=== PATIENT | male | born 1980 | race Caucasian/White ===

== ENCOUNTER 2016-09-29 12:56 | Emergency (ER) | payer OTHER ==
[2016-09-29 12:57] VITALS: BMI 26.6
--- NOTE | 2016-09-29 13:14 | C.PDOC ---
History Of Present Illness 36 male presents to the ER with persistent left sided chest pain for the past 2 weeks, with worsening dyspnea on exertion and SOB. Patient reports history of anxiety, states " I feel anxious when it begins", is not on any anxiety medications. Patient reports occasionally smokes. Denies fever, cough, nausea or vomiting. PERSIST L CP X 2 WEEKS. +WORSENING JACOBSEN, SOB. PLEURITIC. NO FEVER, COUGH. OCC SMOKER. DENIES HO ASTHMA. DENIES OTHER ASSOC SX. HO ANXIETY, "I FEEL ANXIOUS WHEN IT BEGINS' NOT ON ANXIETY MEDS EXAM MILD DIST NONTOXIC LUNGS CTA B/L NO W/R/R +PLEURITIC PAIN L SIDE AND BACK SPEAKING FULL SENTENCES WO DIFF PSYCH MILD ANXIETY CALM COOPERATIVE NO ACUTE PSYCHOSIS SKIN WARM DRY CV RRR REMAINDER NEG Time Seen by Provider: 09/29/16 13:10 Chief Complaint (Nursing): Chest Pain History Per: Patient History/Exam Limitations: no limitations Onset/Duration Of Symptoms: Persistent (2 weeks) Past Medical History Reviewed: Historical Data, Nursing Documentation, Vital Signs Vital Signs: Last Vital Signs Temp 98.2 F 09/29/16 13:05 Pulse 83 09/29/16 13:05 Resp 18 09/29/16 13:05 BP 125/86 09/29/16 13:05 Pulse Ox 98 09/29/16 13:48 Family History: States: No Known Family Hx - Social History Hx Alcohol Use: Yes Hx Substance Use: No - Immunization History Hx Tetanus Toxoid Vaccination: No Hx Influenza Vaccination: No Hx Pneumococcal Vaccination: No Review Of Systems Except As Marked, All Systems Reviewed And Found Negative. Constitutional: Negative for: Fever Cardiovascular: Positive for: Chest Pain (Left sided ) Respiratory: Positive for: Shortness of Breath, Other ((+) Dyspnea on exertion. ). Negative for: Cough Gastrointestinal: Negative for: Nausea, Vomiting Physical Exam - Physical Exam Appears: Non-toxic, In Acute Distress (Mild), Other ((+) Anxious. Speaking in full sentences. Calm. Cooperative. ) Skin: Warm, Dry, No Rash Head: Atraumatic, Normacephalic Oral Mucosa: Moist Chest: Symmetrical, Other ((+) Pleurtic pain left side. ) Cardiovascular: Rhythm Regular, No Murmur Respiratory: Normal Breath Sounds, No Rales, No Wheezing Back: Other ((+) Pleuritic pain left side back. ) Extremity: Normal ROM, No Swelling Neurological/Psych: Oriented x3, Normal Speech, Normal Motor ED Course And Treatment - Laboratory Results Result Diagrams: 09/29/16 14:07 09/29/16 14:07 ECG: Interpreted By Me ECG Rhythm: Sinus Rhythm ECG Interpretation: Normal Rate From EC (BPM) O2 Sat by Pulse Oximetry: 98 (RA ) Pulse Ox Interpretation: Normal - Radiology CXR: Interpreted by Me, Viewed By Me CXR Interpretation: Yes: No Acute Disease Reevaluation Time: 14:54 Reassessment Condition: Improved Medical Decision Making Medical Decision Making: PLAN: * CXR * EKG * Troponin * D-Dimer * CBC * BMP * Xanax PO * Toradol IVP Disposition Counseled Patient/Family Regarding: Studies Performed, Diagnosis, Need For Followup - Disposition Referrals: On License Of [facility] [Outside] [facility] [Outside] Disposition: HOME/ ROUTINE Disposition Time: 14:54 Condition: IMPROVED Instructions: Noncardiac Chest Pain (ED), Anxiety (ED) Forms: [employer] (Syriac) - Clinical Impression Clinical Impression: Chest pain, Anxiety - Scribe Statement The provider has reviewed the documentation as recorded by the Scribe Dulce Felipe Provider Attestation: All medical record entries made by the Scribe were at my direction and personally dictated by me. I have reviewed the chart and agree that the record accurately reflects my personal performance of the history, physical exam, medical decision making, and the department course for this patient. I have also personally directed, reviewed, and agree with the discharge instructions and disposition.
[2016-09-29 14:22] LABS: BASO # 0.1 K/uL (0.0-0.2); BASO % 0.9 % (0.0-2.0); EOS # 0.1 K/uL (0.0-0.7); EOS % 2.1 % (0.0-4.0); HEMOGLOBIN 14.9 g/dL (12.0-18.0); LYMPH # 1.8 K/uL (1.0-4.3); LYMPH % 27.5 % (20.0-40.0); MEAN CELL VOLUME 87.2 fL (80.0-94.0); MEAN CORPUSCULAR HEMOGLOBIN 29.4 pg (27.0-31.0); MEAN CORPUSCULAR HGB CONC 33.7 g/dL (33.0-37.0); MEAN PLATELET VOLUME 8.6 fL (7.2-11.7); MONO # 0.6 K/uL (0.0-0.8); MONO % 9.8 % (0.0-10.0); NEUT # 3.8 K/uL (1.8-7.0); NEUT % 59.7 % (50.0-75.0); NRBC % 0.1 % (0.0-2.0); RBC 5.07 Mil/uL (4.40-5.90); RED CELL DISTRIBUTION WIDTH 13.5 % (11.5-14.5); WHITE BLOOD COUNT 6.4 K/uL (4.8-10.8)
[2016-09-29 14:26] LABS: GFR AFRICAN-AMERICAN > 60; GFR NON-AFRICAN AMERICAN > 60
[2016-09-29 14:27] LABS: BLOOD UREA NITROGEN 20 mg/dL (9-20); CALCIUM 9.5 mg/dl (8.6-10.4)
[2016-09-29 15:38] VITALS: BP 105/61; PULSE 72; RESP 16; TEMP 98; O2SAT 99
--- NOTE | 2016-09-29 15:58 | RAD ---
HISTORY: chest pain COMPARISON: No prior. TECHNIQUE: Chest PA and lateral FINDINGS: LUNGS: No active pulmonary disease. PLEURA: No significant pleural effusion identified. No pneumothorax apparent. CARDIOVASCULAR: Normal. OSSEOUS STRUCTURES: No significant abnormalities. VISUALIZED UPPER ABDOMEN: Normal. OTHER FINDINGS: None. IMPRESSION: No active disease.
--- NOTE | 2016-09-30 14:14 | CARD ---
APPROVED REPORT EKG Measurement Heart [id number] <Conclusion> Normal sinus rhythm with sinus arrhythmia Normal ECG
== END 2016-09-29 15:38 | disposition home or self-care (01) ==
LOC: C.ER 12:56
DX: F41.9 Anxiety disorder, unspecified (principal); R07.89 Other chest pain
CPT/HCPCS: 71020; 80048; 84484; 85025; 85378; 93005; 96374; 99284; J1885

== ENCOUNTER 2017-04-11 19:27 | Emergency (ER) | payer BC ==
[2017-04-11 19:28] VITALS: BMI 26.6
[2017-04-11 19:46] VITALS: RESP 20; O2SAT 98
--- NOTE | 2017-04-11 20:09 | C.PDOC ---
History Of Present Illness 36 year old male presents to the ED for evaluation of SOB, chest tightness that started earlier today. Patient states his symptoms started today while he was going to work, stayed at work but felt his SOB was getting worse. Patient reports his SOB and chest tightness are on and off. Patient had a history of panick attacks, he reports currently not being in any out of the ordinary stress. Patient denies fever, chills, body aches, weakness, numbness. Chief Complaint (Nursing): Shortness Of Breath History Per: Patient History/Exam Limitations: no limitations Onset/Duration Of Symptoms: Days Current Symptoms Are (Timing): Still Present Quality: Tightness Exacerbating Factor(s): Exertion Associated Symptoms: Dizziness Recent travel outside of the [place]: No Additional History Per: Patient Past Medical History Reviewed: Historical Data, Nursing Documentation, Vital Signs Vital Signs: Last Vital Signs Temp 97.3 F L 04/11/17 20:45 Pulse 74 04/11/17 20:45 Resp 20 04/11/17 20:45 BP 109/72 04/11/17 20:45 Pulse Ox 98 04/11/17 20:57 - Medical History PMH: No Chronic Diseases Surgical History: No Surg Hx Family History: States: Unknown Family Hx - Social History Hx Alcohol Use: Yes Hx Substance Use: No - Immunization History Hx Tetanus Toxoid Vaccination: No Hx Influenza Vaccination: No Hx Pneumococcal Vaccination: No Review Of Systems Constitutional: Negative for: Fever, Chills Cardiovascular: Positive for: Chest Pain. Negative for: Palpitations Respiratory: Positive for: Shortness of Breath. Negative for: Cough Gastrointestinal: Negative for: Nausea, Vomiting, Abdominal Pain, Diarrhea Musculoskeletal: Negative for: Back Pain Skin: Negative for: Rash Neurological: Positive for: Dizziness. Negative for: Weakness, Numbness, Headache Physical Exam - Physical Exam Appears: Non-toxic, No Acute Distress Skin: Normal Color, Warm, Dry Head: Atraumatic, Normacephalic Eye(s): bilateral: Normal Inspection Nose: No Discharge, No Deformity Oral Mucosa: Moist Neck: Normal ROM, Supple Chest: Symmetrical Cardiovascular: Rhythm Regular, No Murmur Respiratory: Normal Breath Sounds, No Rales, No Rhonchi, No Wheezing Gastrointestinal/Abdominal: Soft, No Tenderness, No Guarding, No Rebound Extremity: Normal ROM, No Tenderness, No Deformity, No Swelling Neurological/Psych: Oriented x3, Normal Speech, Normal Cognition Gait: Steady ED Course And Treatment - Laboratory Results Result Diagrams: 04/11/17 20:31 04/11/17 20:31 ECG: Interpreted By Me, Viewed By Me ECG Rhythm: Sinus Rhythm ECG Interpretation: Normal Interpretation Of ECG: No ectopy, normal axis, normal intervals Rate From EC O2 Sat by Pulse Oximetry: 98 (On RA) Pulse Ox Interpretation: Normal - Radiology CXR: Interpreted by Me, Viewed By Me CXR Interpretation: Yes: Other (No active pulmoary disease ). No: No Acute Disease, Infiltrates Medical Decision Making Medical Decision Making: Impression: SOB Plan: * EKG * CXR * Labs * Normal * Xanax 0.25 mg PO Disposition - Disposition Referrals: [facility] [Outside] Disposition: HOME/ ROUTINE Disposition Time: 03:43 Condition: FAIR Prescriptions: ALPRAZolam [Xanax] 0.25 mg PO TID PRN #15 tab PRN Reason: Anxiety Instructions: Panic Disorder, Shortness of Breath (Dyspnea) Forms: [employer] (Pashto) Print Language: RUSSIAN - Clinical Impression Clinical Impression: Anxiety - Scribe Statement The provider has reviewed the documentation as recorded by the Scribe Provider Attestation: Marshall Delgado All medical record entries made by the Scribe were at my direction and personally dictated by me. I have reviewed the chart and agree that the record accurately reflects my personal performance of the history, physical exam, medical decision making, and the department course for this patient. I have also personally directed, reviewed, and agree with the discharge instructions and disposition.
[2017-04-11 20:39] LABS: BASO # 0.1 K/uL (0.0-0.2); EOS # 0.2 K/uL (0.0-0.7); EOS % 2.7 % (0.0-4.0); HEMOGLOBIN 14.4 g/dL (12.0-18.0); LYMPH # 2.4 K/uL (1.0-4.3); LYMPH % 33.8 % (20.0-40.0); MEAN CELL VOLUME 85.9 fL (80.0-94.0); MEAN CORPUSCULAR HEMOGLOBIN 29.6 pg (27.0-31.0); MEAN CORPUSCULAR HGB CONC 34.4 g/dL (33.0-37.0); MEAN PLATELET VOLUME 8.6 fL (7.2-11.7); MONO # 0.8 K/uL (0.0-0.8); MONO % 10.7 % (0.0-10.0); NEUT # 3.7 K/uL (1.8-7.0); NEUT % 51.8 % (50.0-75.0); RBC 4.87 Mil/uL (4.40-5.90); RED CELL DISTRIBUTION WIDTH 13.5 % (11.5-14.5); WHITE BLOOD COUNT 7.1 K/uL (4.8-10.8)
[2017-04-11 20:52] LABS: ALB/GLOB RATIO 1.3 (1.0-2.1); ALBUMIN 4.2 g/dL (3.5-5.0); ALT/SGPT 54 U/L (21-72); AST/SGOT 33 U/L (17-59); BLOOD UREA NITROGEN 17 mg/dL (9-20); CALCIUM 9.3 mg/dl (8.6-10.4); GFR AFRICAN-AMERICAN > 60; GFR NON-AFRICAN AMERICAN > 60
[2017-04-11 22:14] VITALS: BP 109/72; PULSE 74; TEMP 97.3
--- NOTE | 2017-04-12 09:07 | RAD ---
HISTORY: SOB COMPARISON: Comparison is made with 09/29/2026 TECHNIQUE: Chest PA and lateral FINDINGS: LUNGS: No active pulmonary disease. PLEURA: No significant pleural effusion identified. No pneumothorax apparent. CARDIOVASCULAR: Normal. OSSEOUS STRUCTURES: No significant abnormalities. VISUALIZED UPPER ABDOMEN: Normal. OTHER FINDINGS: None. IMPRESSION: No active disease.
--- NOTE | 2017-04-14 12:33 | CARD ---
APPROVED REPORT EKG Measurement Heart [id number] <Conclusion> Normal sinus rhythm Normal ECG
== END 2017-04-11 20:45 | disposition home or self-care (01) ==
LOC: C.ER 19:27
DX: F41.9 Anxiety disorder, unspecified (principal)

== ENCOUNTER 2018-03-05 17:11 | Emergency (ER) | payer BC ==
[2018-03-05 17:18] VITALS: BMI 26.1
[2018-03-05 17:20] VITALS: BP 130/85; PULSE 70; RESP 18; TEMP 98; O2SAT 100
[2018-03-05] MEDS ORDERED: Amoxicillin-Clav 875-125 mg Tab PO STA (17:59)
--- NOTE | 2018-03-05 18:13 | C.PDOC ---
History Of Present Illness 37 y/o male with a PMHx of anxiety presents to the ED complaining of left-sided ear pain and lymph node swelling x 1 day. Patient states that throughout the day, he developed intermittent left facial swelling associated with intermittent left ear throbbing. No prior history of similar symptoms in the past. 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 Denies any fevers, chills, headache, dizziness, sore throat, sinus congestion, neck pain, chest pain, or SOB. Time Seen by Provider: 03/05/18 17:51 Chief Complaint (Nursing): ENT Problem History Per: Patient History/Exam Limitations: None Onset/Duration Of Symptoms: Intermittent Episodes Current Symptoms Are (Timing): Still Present Past Medical History Reviewed: Historical Data, Nursing Documentation, Vital Signs Vital Signs: Last Vital Signs Temp 98.0 F 03/05/18 17:18 Pulse 70 03/05/18 17:18 Resp 18 03/05/18 17:18 BP 130/85 03/05/18 17:18 Pulse Ox 100 03/05/18 17:18 Surgical History: No Surg Hx Family History: States: Unknown Family Hx - Social History Hx Tobacco Use: No Hx Alcohol Use: Yes Hx Substance Use: No - Immunization History Hx Tetanus Toxoid Vaccination: No Hx Influenza Vaccination: No Hx Pneumococcal Vaccination: No Review Of Systems Except As Marked, All Systems Reviewed And Found Negative. Constitutional: Negative for: Fever, Chills Eyes: Negative for: Vision Change ENT: Positive for: Ear Pain, Other (Left-sided lymph node swelling). Negative for: Nose Congestion, Throat Pain Cardiovascular: Negative for: Chest Pain Respiratory: Negative for: Cough, Shortness of Breath Gastrointestinal: Negative for: Nausea, Vomiting, Abdominal Pain Musculoskeletal: Negative for: Neck Pain Skin: Negative for: Rash Neurological: Negative for: Weakness, Headache, Dizziness Physical Exam - Physical Exam Appears: Well, Non-toxic, No Acute Distress Skin: Warm, Dry Head: Atraumatic, Normacephalic, No Tenderness Eye(s): bilateral: Normal Inspection, PERRL, EOMI Ear(s): Left: TM Erythema (Left TM is erythematous and dull), Right: Normal Nose: Normal Throat: Normal, No Erythema, No Exudate Neck: Normal ROM, Supple, Other (+ palpable submandibular lymph nodes on the left) Cardiovascular: Rhythm Regular Respiratory: Normal Breath Sounds Neurological/Psych: Oriented x3, Normal Speech ED Course And Treatment O2 Sat by Pulse Oximetry: 100 (RA) Pulse Ox Interpretation: Normal Progress Note: Will treat patient with Augmentin. Patient is stable for discharge home, advised to follow up with PMD and ENT. Medical Decision Making Medical Decision Making: Exam suspicious for left sided otitis media. Will treat with Augmentin and advise ENT followup. Diagnostic testing results and plan of care discussed with patient. Strict instructions given regarding prescription use, importance of followup, and signs/symptoms to return to ER including hearing loss, dizziness, headache, or any other new/worsening symptoms. Pt verbalized understanding of discussion. Patient is A&Ox3, ambulating with steady gait, with vital signs stable for discharge. Disposition Counseled Patient/Family Regarding: Diagnosis, Need For Followup - Disposition Referrals: [facility] [Outside] Ronan Mosley MD [Staff Provider] - Disposition: HOME/ ROUTINE Disposition Time: 18:09 Condition: STABLE Additional Instructions: Augmentin every 12 hours for 1 week Increase fluids Followup with ENT within 2 days Followup with primary doctor within 2 days Return to ER with any new/worsening symptoms Prescriptions: Amoxicillin/Clavulanate [Augmentin 875 MG-125 MG] 1 tab PO Q12H #13 tab Instructions: Ear Infections (Otitis Media) Forms: [employer] (Belarusian), Work Excuse - Clinical Impression Clinical Impression: Otitis media - 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 - Scribe Statement The provider has reviewed the documentation as recorded by the Ellenibpurnima Gabriel All medical record entries made by the Ellenibpurnima were at my direction and perso gokul dictated by me. I have reviewed the chart and agree that the record accurately reflects my personal performance of the history, physical exam, medical decision making, and the department course for this patient. I have also personally directed, reviewed, and agree with the discharge instructions and disposition.
[2018-03-05] MEDS ORDERED: Amoxicillin-Clav 875-125 mg Tab PO ONE (18:27)
== END 2018-03-05 18:39 | disposition home or self-care (01) ==
LOC: C.ER 17:11
DX: H66.92 Otitis media, unspecified, left ear (principal)

== ENCOUNTER 2018-06-01 20:20 | Emergency (ER) | payer BC ==
[2018-06-01 20:20] VITALS: BMI 26.1
[2018-06-01 20:51] VITALS: BP 132/84; PULSE 104; RESP 18; TEMP 100; O2SAT 97
--- NOTE | 2018-06-01 22:49 | C.PDOC ---
History Of Present Illness 37 year old male with subjective fever, cough, and body aches since yesterday presents today after feeling off balance while at work. Denies weakness, numbness, nausea, or vomiting. <Jade Sellers - Last Filed: 06/01/18 23:15> History Per: Patient History/Exam Limitations: no limitations Onset/Duration Of Symptoms: Hrs Current Symptoms Are (Timing): Still Present Location Of Pain: None Associated Symptoms: Fever (Subjective), Cough, Myalgias, Other (Benoit off balance) Recent travel outside of the [place]: No <Jade Sellers - Last Filed: 06/01/18 23:15> <Rowan Olivares - Last Filed: 06/02/18 01:52> Time Seen by Provider: 06/01/18 21:09 Chief Complaint (Nursing): Flu-like Symptoms Past Medical History Reviewed: Historical Data, Nursing Documentation, Vital Signs Vital Signs: Last Vital Signs Temp 100.0 F H 06/01/18 20:48 Pulse 104 H 06/01/18 20:48 Resp 18 06/01/18 20:48 BP 132/84 06/01/18 20:48 Pulse Ox 97 06/01/18 20:48 Family History: States: Unknown Family Hx - Social History Hx Tobacco Use: No Hx Alcohol Use: Yes Hx Substance Use: No - Immunization History Hx Tetanus Toxoid Vaccination: No Hx Influenza Vaccination: No Hx Pneumococcal Vaccination: No <Jade Sellers - Last Filed: 06/01/18 23:15> Vital Signs: Last Vital Signs Temp 100.0 F H 06/01/18 20:48 Pulse 104 H 06/01/18 20:48 Resp 18 06/01/18 20:48 BP 132/84 06/01/18 20:48 Pulse Ox 97 06/01/18 23:17 <Rowan Olivares - Last Filed: 06/02/18 01:52> Review Of Systems Constitutional: Positive for: Fever (Subjective) Cardiovascular: Negative for: Chest Pain, Palpitations Respiratory: Positive for: Cough. Negative for: Shortness of Breath Gastrointestinal: Negative for: Nausea, Vomiting Musculoskeletal: Positive for: Other (Body aches) Neurological: Positive for: Other (Benoit off balance). Negative for: Weakness, Numbness <Jade Sellers - Last Filed: 06/01/18 23:15> Physical Exam - Physical Exam Appears: Non-toxic Skin: Normal Color, Warm Head: Atraumatic, Normacephalic Eye(s): bilateral: Normal Inspection, PERRL, EOMI Ear(s): Left: TM Erythema, Right: Normal Nose: Normal Oral Mucosa: Moist Throat: Normal, No Erythema, No Exudate Neck: Normal, Supple Chest: Symmetrical, No Tenderness Cardiovascular: Rhythm Regular Respiratory: Normal Breath Sounds, No Rales, No Rhonchi, No Wheezing Gastrointestinal/Abdominal: Soft, No Tenderness Extremity: Normal ROM (x4) Neurological/Psych: Oriented x3, Normal Speech, Other (No focal deficit) Gait: Steady <Jade Sellers Last Filed: 06/01/18 23:15> ED Course And Treatment O2 Sat by Pulse Oximetry: 97 (Room air) Pulse Ox Interpretation: Normal Progress Note: Flu swab was negative. CT head ordered. <Jade Sellers Last Filed: 06/01/18 23:15> - CT Scan/US CT Head Other Rad Studies (CT/US): Read By Radiologist, Radiology Report Reviewed CT/US Interpretation: EXAM: CT Head without Intravenous Contrast. CLINICAL HISTORY: Headache no balance. TECHNIQUE: Axial computed tomography images of the head/brain without intravenous contrast. 0.00 mGy-cm. COMPARISON: None provided. FINDINGS: BRAIN. No acute intraparenchymal hemorrhage. No mass lesion. No CT evidence for acute territorial infarct. No midline shift or extra- axial collections. VENTRICLES: No hydrocephalus. ORBITS: The orbits are unremarkable. SINUSES AND MASTOIDS: An air-fluid level is seen in the posterior left maxillary sinus and minimal mucoperiosteal thickening is seen in the bilateral ethmoid sinuses compatible with sinusitis. The remaining paranasal sinuses and mastoid air cells are clear. BONES: No fracture. SOFT TISSUES: Unremarkable. IMPRESSION: 1. No acute intracranial abnormality. 2. Bilateral ethmoid and left maxillary sinusitis. <Rowan Olivares Galdino - Last Filed: 06/02/18 01:52> Medical Decision Making Medical Decision Making: Patient underwent CT head for dizziness; results reviewed and discussed with patient. Symptoms likely secondary to L otitis media and sinus pressure. Rx written for abx for otitis media. Advised outpatient followup as needed. Return to the ED for any new or worsening symptoms. <Rowan Olivares - Last Filed: 06/02/18 01:52> Disposition - Disposition Disposition Time: 23:16 <Jade Slelers - Last Filed: 06/01/18 23:15> <Rowan Olivares - Last Filed: 06/02/18 01:52> - Disposition Disposition: HOME/ ROUTINE Condition: STABLE Additional Instructions: JOAQUIM LEZAMA, thank you for letting us take care of you today. Your provider was Rowan Olivares MD and you were treated for FEVER/BODY PAIN/HEADACHE. The emergency medical care you received today was directed at your acute symptoms. If you were prescribed any medication, please fill it and take as directed. It may take several days for your symptoms to resolve. Return to the Emergency Department if your symptoms worsen, do not improve, or if you have any other problems. Please contact your doctor or call one of the physicians/clinics you have been referred to that are listed on the Patient Visit Information form that is included in your discharge packet. Bring any paperwork you were given at discharge with you along with any medications you are taking to your follow up visit. Our treatment cannot replace ongoing medical care by a primary care provider outside of the emergency department. Thank you for allowing the [facility] team to be part of your care today. If you had an X-Ray or CT scan: A Radiologist will review the ED reading if any change in treatment is needed we will contact you. If you had a blood, urine, or wound culture: It will take several days for the results, if any change in treatment is needed we will contact you. If you had an STI test: It will take 48 hours for the results. Please call after 1 week if you have not heard back. Prescriptions: Amoxicillin 875 mg PO BID 7 Days tablet Instructions: Ear Infections (Otitis Media) (DC) Forms: [facility] ([place]an) - Clinical Impression Clinical Impression: Otitis media, URI (upper respiratory infection), Dizziness Physician Patient Turnover Patient Signed Over To: Rowan Olivares Handoff Comments: Pending CT head, if negative need antibiotics for Otitis media <Jade Sellers - Last Filed: 06/01/18 23:15>
--- NOTE | 2018-06-02 09:11 | CT ---
Date of service: 06/01/2018 PROCEDURE: CT HEAD WITHOUT CONTRAST. HISTORY: headache, URI, feeling off balance COMPARISON: Not available TECHNIQUE: Axial computed tomography images were obtained through the head/brain without intravenous contrast. Radiation dose: Total exam DLP = 1092.63 mGy-cm. This CT exam was performed using one or more of the following dose reduction techniques: Automated exposure control, adjustment of the mA and/or kV according to patient size, and/or use of iterative reconstruction technique. FINDINGS: HEMORRHAGE: No intracranial hemorrhage. BRAIN: No mass effect or edema. No atrophy or chronic microvascular ischemic changes. VENTRICLES: Unremarkable. No hydrocephalus. CALVARIUM: Unremarkable. PARANASAL SINUSES: Chronic ethmoid and left maxillary sinusitis. MASTOID AIR CELLS: Unremarkable as visualized. No inflammatory changes. OTHER FINDINGS: None. IMPRESSION: No intracranial mass, hemorrhage or evidence of acute infarct. Chronic ethmoid and left maxillary sinusitis. The preliminary findings for this examination were reported by [facility] at 11:53 p.m. on 06/01/2018. There is concurrence of this report with the preliminary findings.
== END 2018-06-02 00:15 | disposition home or self-care (01) ==
LOC: C.ER 20:20
DX: H66.92 Otitis media, unspecified, left ear (principal); J06.9 Acute upper respiratory infection, unspecified; R42 Dizziness and giddiness